=== PATIENT | female | born 1945 ===

== ENCOUNTER 2017-02-13 04:53 | Emergency (ER) | payer SELFPAY ==
[~2017-02-13] VITALS: Ht 149.9 cm; Wt 63.5 kg
[2017-02-13 04:59] VITALS: Ht 149.9 cm; Wt 63.5 kg
[2017-02-13] MEDS ORDERED: ONDANSETRON 4 MG INJ IV STA (05:46)
[2017-02-13] MEDS ORDERED: SOD CHLORIDE 0.9% 1,000 ML IV STA (05:46)
[2017-02-13] MEDS ORDERED: morphine 4 MG/ML VIAL IV STA (05:46)
[2017-02-13 06:00] VITALS: BP 146/67; PULSE 62; RESP 13; TEMP 98
[2017-02-13 06:19] LABS: BASOPHILS % 0.3 % (0.0-2.0); EOSINOPHILS # 0.1 10^3/ul (0.0-0.5); EOSINOPHILS % 0.8 % (0.0-7.0); HEMATOCRIT 38.9 % (37.0-47.0); HEMOGLOBIN 12.8 g/dl (12.0-16.0); LYMPHOCYTES % 30.4 % (15.0-51.0); MEAN CORPUSCULAR HEMOGLOBIN 27.9 pg (29.0-33.0); MEAN CORPUSCULAR HGB CONC 32.9 g/dl (32.0-37.0); MEAN CORPUSCULAR VOLUME 84.7 fl (82.0-101.0); MEAN PLATELET VOLUME 10.6 fl (7.4-10.4); MONOCYTE # 0.4 10^3/ul (0.3-0.9); MONOCYTES % 6.4 % (0.0-11.0); NEUTROPHILS % 61.8 % (39.0-77.0); PLATELET COUNT 237 10^3/UL (140-415); RED BLOOD COUNT 4.59 10^6/ul (4.20-5.40); RED CELL DISTRIBUTION WIDTH 12.7 % (11.5-14.5); WHITE BLOOD COUNT 6.4 10^3/ul (4.8-10.8)
[2017-02-13 06:23] LABS: ADD UMIC YES; UR ASCORBIC ACID NEGATIVE (NEGATIVE); UR BILIRUBIN (Dip) NEGATIVE (NEGATIVE); UR BLOOD (Dip) NEGATIVE (NEGATIVE); UR CLARITY CLEAR (CLEAR); UR COLOR YELLOW (YELLOW); UR GLUCOSE (Dip) NEGATIVE (NEGATIVE); UR KETONES (Dip) NEGATIVE (NEGATIVE); UR LEUKOCYTE ESTERASE (Dip) 2+ Leu/ul (NEGATIVE); UR NITRITE (Dip) NEGATIVE (NEGATIVE); UR RBC 1 /HPF (0-5); UR SPECIFIC GRAVITY (Dip) 1.011 (1.003-1.030); UR TOTAL PROTEIN (Dip) NEGATIVE (NEGATIVE); UR UROBILINOGEN (Dip) NEGATIVE (NEGATIVE)
[2017-02-13] MEDS ORDERED: CEPHALEXIN 500 MG CAP PO ONE (06:30)
[2017-02-13 06:41] LABS: ALBUMIN 4.3 g/dl (3.3-4.9); ALBUMIN/GLOBULIN RATIO 1.26; BILIRUBIN,INDIRECT 0.2 mg/dl (0-1.1); BILIRUBIN,TOTAL 0.2 mg/dl (0.2-1.3); CALCIUM 9.5 mg/dl (8.4-10.2); CREATININE 1.14 mg/dl (0.44-1.00); TOTAL PROTEIN 7.7 g/dl (6.1-8.1)
[2017-02-13] MEDS ORDERED: LORAZEPAM 2 MG INJ IV ONE (07:00)
[2017-02-13] MEDS ORDERED: CEPH-443 PO (07:43)
[2017-02-13] MEDS ORDERED: ONDA4TAB14 PO (07:43)
[2017-02-13] MEDS ORDERED: HYDR-906 PO (07:43)
--- NOTE | 2017-02-13 07:59 | RADRPT ---
PROCEDURE: CT of the abdomen and pelvis without contrast CLINICAL INDICATION: Abdominal pain TECHNIQUE: Spiral CT images through the abdomen and pelvis without the use of contrast. The admin istered radiation dose is CTDI 10.65 mGy and DLP 520.26 mGy*cm. Coronal and sagittal reformatted im ages were submitted. One or more of the following dose reduction techniques were used: automated ex posure control, adjustment of the mA and/or kV according to patient size, or use of iterative recons truction technique. DICOM images are available. COMPARISON: None FINDINGS: Lack of oral and intravenous contrast somewhat limits evaluation. The lung bases are clear. No pl eural effusion is seen. There is a small hiatal hernia containing a small amount of contrast. The liver, spleen, adrenal glands and pancreas are normal in appearance. There is evidence of cholel ithiasis or biliary ductal dilatation. The kidneys are symmetric. there is no evidence of hydronephr osis or nephrolithiasis. The aorta is normal in caliber.. There is no evidence for bowel obstructio n, free air, or abscess. The appendix is normal in appearance. There is colonic diverticulosis wit hout evidence of diverticulitis. No adenopathy or ascites is seen. The bladder is markedly distended . The uterus is anteverted with a 2.7 cm calcified, exophytic left fundal leiomyoma. There is a 1.2 cm peripherally calcified left adnexal lesion with prominent soft tissue anterior to the psoas muscl e. The bones are demineralized. L5-S1 spondylolysis, spondylolisthesis and severe degenerative dis c disease.. There is a hemangioma in the L4 vertebral body. IMPRESSION: No definite acute abnormality of the abdomen or pelvis. Colonic diverticulosis without evidence of acute diverticulitis. 2.7 cm exophytic, calcified left fundal leiomyoma. Calcified left adnexal mass with prominent soft t issue density anterior to the left psoas muscle. Follow-up contrast enhanced exam recommended. RPTAT: HCNS Physician Charly Date Time Electronically viewed and signed by Physician Charly on 02/13/2017 07:59 CS/
--- NOTE | 2017-02-13 08:33 | ERD ---
ER Documentation Chief Complaint Chief Complaint abdominal pain x 3 days. HPI Patient is a 71-year-old female with hypertension who presents with abdominal pain. She has had 2 weeks of abdominal pain which is diffuse. It has been constant and sharp in nature. She has had no treatment as of yet. She has had nausea and vomiting but no diarrhea. She had subjective fever but did not take her temperature. Upon review of old medical records this is the patient's first visit to the emergency department. She does not currently have a primary doctor. ROS All systems reviewed and are negative except as per history of present illness. Medications Home Meds Active Scripts Ondansetron (Ondansetron Odt) 4 Mg Tab.rapdis, 4 MG PO Q6H Y for NAUSEA AND/OR VOMITING, #30 TAB Prov:ANIYAH ARMENDARIZ MD 02/13/17 Hydrocodone/Acetaminophen (Borger 5-325 Tablet) 1 Each Tablet, 1 TAB PO Q6H Y for PAIN, #7 TAB Prov:ANIYAH ARMENDARIZ MD 02/13/17 Cephalexin* (Keflex*) 500 Mg Capsule, 500 MG PO QID for 7 Days, CAP Prov:ANIYAH ARMENDARIZ MD 02/13/17 Allergies Allergies: Coded Allergies: No Known Drug Allergies (Verified Allergy, Unknown, 02/13/17) PMhx/Soc Medical and Surgical Hx: pt denies Surgical Hx History of Surgery: No Anesthesia Reaction: No Hx Neurological Disorder: No Hx Respiratory Disorders: No Hx Cardiac Disorders: Yes (HTN) Hx Psychiatric Problems: No Hx Miscellaneous Medical Probl: Yes (Hypercholesterolemia) Hx Alcohol Use: No Hx Substance Use: No Hx Tobacco Use: No Smoking Status: Never smoker FmHx Family History: diabetes Physical Exam Vitals Vital Signs Date Time Temp Pulse Resp B/P Pulse Ox O2 Delivery O2 Flow Rate FiO2 02/13/17 06:00 98.0 62 13 146/67 98 Room Air 02/13/17 04:59 98.0 67 20 147/81 97 Physical Exam Const: Moderate distress secondary to pain Head: Atraumatic Eyes: Normal Conjunctiva ENT: Normal External Ears, Nose and Mouth. Neck: Full range of motion..~ No meningismus. Resp: Clear to auscultation bilaterally Cardio: Regular rate and rhythm, no murmurs Abd: Soft, diffuse tenderness to palpation without rebound or guarding Skin: No petechiae or rashes Back: No midline or flank tenderness Ext: No cyanosis, or edema Neur: Awake and alert Psych: Normal Mood and Affect Result Diagram: 02/13/17 0600 02/13/17 0600 Results 24 hrs Laboratory Tests Test 02/13/17 05:55 02/13/17 06:00 Urine Color YELLOW Urine Clarity CLEAR Urine pH 9.0 Urine Specific [place] 1.011 Urine Ketones NEGATIVEmg/dL Urine Nitrite NEGATIVEmg/dL Urine Bilirubin NEGATIVEmg/dL Urine Urobilinogen NEGATIVEmg/dL Urine Leukocyte Esterase 2+Robin/ul Urine Microscopic RBC 1/HPF Urine Microscopic WBC 23/HPF Urine Hemoglobin NEGATIVEmg/dL Urine Glucose NEGATIVEmg/dL Urine Total Protein NEGATIVEmg/dl White Blood Count 6.410^3/ul Red Blood Count 4.5910^6/ul Hemoglobin 12.8g/dl Hematocrit 38.9% Mean Corpuscular Volume 84.7fl Mean Corpuscular Hemoglobin 27.9pg Mean Corpuscular Hemoglobin Concent 32.9g/dl Red Cell Distribution Width 12.7% Platelet Count 65508^3/UL Mean Platelet Volume 10.6fl Neutrophils % 61.8% Lymphocytes % 30.4% Monocytes % 6.4% Eosinophils % 0.8% Basophils % 0.3% Nucleated Red Blood Cells % 0.0/100WBC Neutrophils # 4.010^3/ul Lymphocytes # 2.010^3/ul Monocytes # 0.410^3/ul Eosinophils # 0.110^3/ul Basophils # 0.010^3/ul Nucleated Red Blood Cells # 0.010^3/ul Sodium Level 146mmol/L Potassium Level 4.0mmol/L Chloride Level 104mmol/L Carbon Dioxide Level 29mmol/L Anion Gap 17 Blood Urea Nitrogen 12mg/dl Creatinine 1.14mg/dl Glucose Level 109mg/dl Calcium Level 9.5mg/dl Total Bilirubin 0.2mg/dl Direct Bilirubin 0.00mg/dl Indirect Bilirubin 0.2mg/dl Aspartate Amino Transf (AST/SGOT) 31IU/L Alanine Aminotransferase (ALT/SGPT) 51IU/L Alkaline Phosphatase 93IU/L Total Protein 7.7g/dl Albumin 4.3g/dl Globulin 3.40g/dl Albumin/Globulin Ratio 1.26 Lipase 120U/L Current Medications Medications (Trade) Dose Ordered Sig/Chance Route PRN Reason Start Time Stop Time Status Last Admin Dose Admin Sodium Chloride (NS) 1,000 ml @ 1,000 mls/hr Q1H STAT IV 02/13/17 05:46 02/13/17 06:45 DC 02/13/17 06:55 Morphine Sulfate (morphine) 4 mg ONCE STAT IV 02/13/17 05:46 02/13/17 05:47 DC 02/13/17 06:58 Ondansetron HCl (Zofran Inj) 4 mg ONCE STAT IV 02/13/17 05:46 02/13/17 05:47 DC 02/13/17 06:57 Cephalexin (Keflex) 500 mg ONCE ONCE PO 02/13/17 06:30 02/13/17 06:31 DC 02/13/17 06:59 Lorazepam (Ativan) 0.5 mg ONCE ONCE IV 02/13/17 07:00 02/13/17 07:01 DC 02/13/17 06:59 Procedures/MDM PROCEDURE: CT of the abdomen and pelvis without contrast CLINICAL INDICATION: Abdominal pain TECHNIQUE: Spiral CT images through the abdomen and pelvis without the use of contrast. The administered radiation dose is CTDI 10.65 mGy and DLP 520.26 mGy *cm. Coronal and sagittal reformatted images were submitted. One or more of the following dose reduction techniques were used: automated exposure control, adjustment of the mA and/or kV according to patient size, or use of iterative reconstruction technique. DICOM images are available. COMPARISON: None FINDINGS: Lack of oral and intravenous contrast somewhat limits evaluation. The lung bases are clear. No pleural effusion is seen. There is a small hiatal hernia containing a small amount of contrast. The liver, spleen, adrenal glands and pancreas are normal in appearance. There is evidence of cholelithiasis or biliary ductal dilatation. The kidneys are symmetric. there is no evidence of hydronephrosis or nephrolithiasis. The aorta is normal in caliber.. There is no evidence for bowel obstruction, free air, or abscess. The appendix is normal in appearance. There is colonic diverticulosis without evidence of diverticulitis. No adenopathy or ascites is seen. The bladder is markedly distended. The uterus is anteverted with a 2.7 cm calcified, exophytic left fundal leiomyoma. There is a 1.2 cm peripherally calcified left adnexal lesion with prominent soft tissue anterior to the psoas muscle. The bones are demineralized. L5-S1 spondylolysis, spondylolisthesis and severe degenerative disc disease.. There is a hemangioma in the L4 vertebral body. IMPRESSION: No definite acute abnormality of the abdomen or pelvis. Colonic diverticulosis without evidence of acute diverticulitis. 2.7 cm exophytic, calcified left fundal leiomyoma. Calcified left adnexal mass with prominent soft tissue density anterior to the left psoas muscle. Follow-up contrast enhanced exam recommended. RPTAT: HCNS Physician Charly Date Time Electronically viewed and signed by Trang Kaye Physician on 02/13/2017 07: 59 Patient is a 71-year-old female who presents with complaints of abdominal pain. She has had abdominal pain for the past 2 weeks. I doubt appendicitis, cholecystitis, pancreatitis, or bowel obstruction. She was found to have a cystitis and I will treat her with Keflex for a one-week course. Her vital signs are normal here and I doubt sepsis at this time. The patient feels better after treatment. I believe outpatient management is appropriate but she will need close follow-up with the local clinics within 24-48 hours that she does not currently have a primary doctor. She was given copies of her laboratory studies and CT scan report prior to discharge. She can have follow- up for the CT scan report as an outpatient. She can return for any worsening symptoms. Departure Diagnosis: Primary Impression: Cystitis Additional Impression: Abdominal pain Abdominal location: generalized Qualified Code: R10.84 - Generalized abdominal pain Condition: Fair Patient Instructions: Abdominal Pain, Cystitis [facility] Usted se lucas hecho un examen mdico de control que le indica que no est en radha condicin que requiera tratamiento urgente en el Departamento de Emergencia. Un estudio ms profundo y el tratamiento de ratliff condicin pueden esperar sin ningn riesgo hasta que usted sea atendida/o en el consultorio de ratliff mdico o radha cl cuong. Es responsabilidad suya arreglar radha tiburcio para el seguimiento del andi. MANEJO DE CONDICIONES NO URGENTES EN EL FUTURO 1) Si usted tiene un mdico de atencin primaria: Usted debera llamar a ratliff mdico de atencin primaria antes de venir al departamento de emergencia. Despus de las horas de consultorio, ratliff doctor o ratliff asociado/a est disponible por telfono. El mdico o enfermero de martine en el servicio telefnico puede asesorarle por nayana medio para atender el problema, o andi contrario se puede programar radha tiburcio. 2) Si usted no tiene un mdico de atencin primaria: Llame al mdico o clnica de referencia que aparece abajo janel las horas de consultorio para hacer radha tiburcio para que le vean. CLINICAS: [facility] [phone] [facility] [phone] [facility]. [facility] [phone] [facility] [phone] [facility]. [place] [id number] [phone] [facility] [place]. [phone] [address] Additional Instructions: Visite a ratliff mdico maana para un EXAMEN.Regrese a estas instalaciones si no se mejora minerva esperbamos o minerva le dijimos. ANIYAH ARMENDARIZ MD Feb 13, 2017 08:33
== END 2017-02-13 08:58 | disposition home or self-care (01) ==
LOC: E/R 04:53
DX: N30.90 Cystitis, unspecified without hematuria (principal); I10 Essential (primary) hypertension
CPT/HCPCS: 36415; 74176; 80053; 81001; 83690; 85025; 96374; 96375; 99285; J2060; J2270; J2405; J7030